=== PATIENT | male | born 1975 | race Caucasian/White ===

== ENCOUNTER 2017-01-05 15:30 | Emergency (ER) | payer OTHER ==
[~2017-01-05] VITALS: Ht 175.2 cm; Wt 77.1 kg
[~2017-01-05 15:30] MED LIST: ATARAX,VISTARIL50 MG PO; CLONAZEPAM1 MG PO; Cleocin150 MG PO; NICOTINE T21 MG/24 H T; ONDANSETRON HYDR4 M1 PO; REGLAN10 MG PO; ROBAXIN750 MG PO; SINEMET 25-100M1 TAB PO; THERA1 TAB PO; VITAMIN B-11 TAB PO; ZOFRAN ODT4 MG SL
[2017-01-05] MEDS ORDERED: ADDERALL 20 MG20 MG PO (15:41)
[2017-01-05] MEDS ORDERED: CLONAZEPAM1 MG PO (15:42)
[2017-01-05] MEDS ORDERED: MIRTAZAPINE30 M2 PO (15:42)
[2017-01-05] MEDS ORDERED: PREDNISONE20 M1 PO (15:47)
== END 2017-01-05 15:50 | disposition home or self-care (01) ==
LOC: ED 15:30
DX: L24.7 Irritant contact dermatitis due to plants, except food (principal); F17.200 Nicotine dependence, unspecified, uncomplicated

== ENCOUNTER 2017-03-26 14:11 | Emergency (ER) | payer OTHER ==
[~2017-03-26] VITALS: Ht 175.2 cm; Wt 74.8 kg
[~2017-03-26 14:11] MED LIST changes: +ADDERALL 20 MG20 MG PO; +MIRTAZAPINE30 M2 PO; +PREDNISONE20 M1 PO
== END 2017-03-26 14:54 | disposition home or self-care (01) ==
LOC: ED 14:11
DX: L23.7 Allergic contact dermatitis due to plants, except food (principal); F17.200 Nicotine dependence, unspecified, uncomplicated

== ENCOUNTER 2017-08-19 21:45 | Emergency (ER) | payer OTHER ==
[~2017-08-19] VITALS: Ht 175.2 cm; Wt 74.8 kg
[2017-08-19 23:46] LABS: BILIRUBIN NEGATIVE (NEGATIVE); BLOOD NEGATIVE (NEGATIVE); CLARITY SL CLOUDY (CLEAR); COLOR YELLOW (YELLOW); GLUCOSE NEGATIVE (NEGATIVE); KETONE NEGATIVE (NEGATIVE); LEUKO ESTERASE NEGATIVE (NEGATIVE); NITRITE NEGATIVE (NEGATIVE); SPECIFIC GRAVITY 1.025 (1.005-1.030); UROBILINOGEN 0.2 E.U./dl (0.2-1.0)
[2017-08-19 23:53] LABS: URINE AMPHETAMINES > 1000 (1000ng/ml); URINE BARBITURATES > 200 (200ng/ml); URINE BENZODIAZEPINES > 200 (200ng/ml); URINE CANNABINOIDS (THC) > 50 (50ng/ml); URINE COCAINE > 300 (300ng/ml); URINE METHADONE < 300 (300ng/ml); URINE OPIATES < 300 (300ng/ml)
[2017-08-19 23:57] LABS: URINE PHENCYCLIDINE < 25 (25ng/ml)
[2017-08-20 00:04] LABS: BACTERIA TRACE
== END 2017-08-20 01:16 | disposition home or self-care (01) ==
LOC: ED 21:45
PROVIDERS: Nurse Practitioner Family
DX: S09.90XA Unspecified injury of head, initial encounter (principal); F41.9 Anxiety disorder, unspecified; F14.10 Cocaine abuse, uncomplicated; F17.200 Nicotine dependence, unspecified, uncomplicated; Z79.899 Other long term (current) drug therapy; V89.2XXA Person injured in unspecified motor-vehicle accident, traffic, initial encounter; Y93.89 Activity, other specified; Y92.89 Other specified places as the place of occurrence of the external cause; Y99.8 Other external cause status

== ENCOUNTER → 2018-04-23 | Outpatient (CLI) | payer OTHER ==
[~2018-04-23] MED LIST changes: +CHLORZOXAZONE500 M2 PO; +MIRAPEX0.5 MG PO; +PREDNISONE10 MG PO; +TRAZODONE50 MG PO
[2018-04-23 13:42] LABS: HEMATOCRIT 45.2 % (42.0-52.0); HEMOGLOBIN 15.3 g/dl (14.0-18.0); MEAN CELL VOLUME 91.9 fl (80.0-94.0); MEAN CORPUSCULAR HGB 31.1 pg (27.0-31.0); MEAN CORPUSCULAR HGB CONC 33.8 g/dl (33.0-37.0); MEAN PLATELET VOLUME 8.6 fl (9.6-12.3); RED BLOOD COUNT 4.92 10*6/uL (4.50-5.90); RED CELL DISTRI WIDTH 13.7 % (0-14.5); WHITE BLOOD COUNT 12.1 10*3/uL (4.8-10.8)
[2018-04-23 14:14] LABS: ALBUMIN 4.3 gm/dl (3.1-4.5); BUN 10 mg/dl (7-24); CHLORIDE 106 mmol/L (98-107); CHOLESTEROL 147 mg/dL (<200); CREATININE 0.72 mg/dL (0.70-1.30); POTASSIUM 3.9 mmol/L (3.5-5.1); SGOT/AST 55 IU/L (3-35); SGPT/ALT 138 U/L (12-78); SODIUM 138 mmol/L (136-145); TOTAL PROTEIN 8.1 gm/dL (6.4-8.2); TRIGLYCERIDES 100 mg/dl (<150); VLDL CHOLESTEROL 20 mg/dL (6-40)
[2018-04-23 14:22] LABS: ALKALINE PHOSPHATASE 69 U/L (45-117); HDL CHOLESTEROL 37 mg/dl (40-60); LDL CHOLESTEROL 90 mg/dL (9-159)
== END | disposition home or self-care (01) ==
LOC: LAB 13:07
PROVIDERS: Family Medicine
DX: E78.00 Pure hypercholesterolemia, unspecified (principal); M54.2 Cervicalgia; E55.9 Vitamin D deficiency, unspecified; R53.83 Other fatigue; G47.00 Insomnia, unspecified

== ENCOUNTER → 2018-05-27 | Outpatient (CLI) | payer OTHER | END | disposition home or self-care (01) | LOC: US 05-26 10:30 | DX: R94.5 Abnormal results of liver function studies (principal); Z90.49 Acquired absence of other specified parts of digestive tract ==

== ENCOUNTER 2019-02-25 13:12 | Inpatient (IN) | payer OTHER ==
[~2019-02-25] VITALS: Ht 172.7 cm; Wt 69.2 kg
--- NOTE | ~2019-02-25 | EKG ---
[place], [place] ELECTROCARDIOGRAM REPORT NAME: LIZBET PAULINO UNIT #: [id number] ROOM: 427 DOCTOR: JAYY DRAFT REPORT BIRTHDATE: [birth year] [facility] Test Date: 2019-02-25 Test Time: 15:45:56 Pat Name: LIZBET PAULINO Department: Room: 427 1 Gender: M Die Cast Operator: : 1975 Requested By: PRADEEP RANGEL Order Number: [id number] Reading MD: Nikki Reagan Measurements Intervals [place] Rate: 77 P: 52 SC: 142 QRS: -10 QRSD: 101 T: 41 QT: 390 QTc: 442 Interpretive Statements Sinus rhythm Atrial premature complexes Abnormal R-wave progression, early transition Compared to ECG 06/25/2018 16:06:05 Atrial premature complex(es) now present Electronically Signed On 02-27-2019 8:55:49 PDT by Nikki Reagan CM:EKGRPT:ELECTROCARDIOGRAM REPORT [id number] PRADEEP SALEEM DRAFT REPORT PRADEEP RANGEL DO
[2019-02-25] MEDS ORDERED: EFFEXOR XR150 M1 PO (15:19)
[2019-02-25 16:00] VITALS: BP 123/85
[2019-02-25] MEDS ORDERED: ADDERALL 10 MG10 MG PO (16:59)
[2019-02-25 20:00] VITALS: BP 135/85
[2019-02-26] VITALS: BP 124/81
[2019-02-26 08:00] VITALS: BP 92/63
[2019-02-26 10:44] LABS: HEMOGLOBIN 15.1 g/dl (14.0-18.0); MEAN CELL VOLUME 91.6 fl (80.0-94.0); MEAN CORPUSCULAR HGB 30.1 pg (27.0-31.0); MEAN CORPUSCULAR HGB CONC 32.8 g/dl (33.0-37.0); MEAN PLATELET VOLUME 8.9 fl (9.6-12.3); PLATELET COUNT AUTOMATED 334 10*3/uL (130-400); RED BLOOD COUNT 5.02 10*6/uL (4.50-5.90); RED CELL DISTRI WIDTH 13.1 % (0-14.5); WHITE BLOOD COUNT 10.4 10*3/uL (4.8-10.8)
[2019-02-26 10:51] LABS: URINE AMPHETAMINES < 1000 (1000ng/ml); URINE BARBITURATES < 200 (200ng/ml); URINE BENZODIAZEPINES > 200 (200ng/ml); URINE CANNABINOIDS (THC) > 50 (50ng/ml); URINE COCAINE < 300 (300ng/ml); URINE METHADONE < 300 (300ng/ml); URINE OPIATES < 300 (300ng/ml); URINE PHENCYCLIDINE < 25 (25ng/ml)
[2019-02-26 11:03] LABS: ALBUMIN 4.1 gm/dl (3.1-4.5); ALKALINE PHOSPHATASE 74 U/L (45-117); BUN 11 mg/dl (7-24); CHLORIDE 107 mmol/L (98-107); CREATININE 0.75 mg/dL (0.70-1.30); POTASSIUM 4.5 mmol/L (3.5-5.1); SGOT/AST 54 IU/L (3-35); SGPT/ALT 121 U/L (12-78); SODIUM 141 mmol/L (136-145); TOTAL PROTEIN 7.7 gm/dL (6.4-8.2)
[2019-02-26 11:06] LABS: ATYPICAL LYMPHS 1 % (0-0); BASOPHILS 1 % (0-1); PLATELET SUFFICIENCY NORMAL (NORMAL); TOTAL CELLS COUNTED 100 #CELLS
[2019-02-26 11:07] LABS: ETHYL ALCOHOL < 3.0 mg/dl (<3)
[2019-02-26 16:00] VITALS: BP 114/75
[2019-02-27] VITALS: BP 121/77
[2019-02-27 08:00] VITALS: BP 108/69
[2019-02-27 16:00] VITALS: BP 106/66
[2019-02-28] VITALS: BP 118/68
[2019-02-28 08:00] VITALS: BP 113/77
[2019-02-28] MEDS ORDERED: PREDNISONE20 M1 PO (09:29)
[2019-02-28] MEDS ORDERED: METHOCARBAMOL750 M1 PO (09:29)
[2019-02-28] MEDS ORDERED: MOTRIN 600 MG E4 TAB PO (09:29)
[2019-02-28] MEDS ORDERED: NICOTROL10 MG INH (11:15)
== END 2019-02-28 12:12 | disposition home or self-care (01) | DRG 897 ==
LOC: 4E 13:12
PROVIDERS: Internal Medicine; Student in an Organized Health Care Education/Training Program; ADMIT Emergency Medicine
DX: F11.23 Opioid dependence with withdrawal (principal); F33.9 Major depressive disorder, recurrent, unspecified; F13.239 Sedative, hypnotic or anxiolytic dependence with withdrawal, unspecified; Z66 Do not resuscitate; Z51.5 Encounter for palliative care; F17.210 Nicotine dependence, cigarettes, uncomplicated; F90.9 Attention-deficit hyperactivity disorder, unspecified type; F15.10 Other stimulant abuse, uncomplicated; F41.1 Generalized anxiety disorder; R74.0 Nonspecific elevation of levels of transaminase and lactic acid dehydrogenase [LDH]; R73.9 Hyperglycemia, unspecified; Z87.820 Personal history of traumatic brain injury; Z90.49 Acquired absence of other specified parts of digestive tract; Z82.0 Family history of epilepsy and other diseases of the nervous system; Z79.899 Other long term (current) drug therapy; Z71.6 Tobacco abuse counseling

== ENCOUNTER 2019-07-14 14:43 | Inpatient (IN) | payer OTHER ==
[~2019-07-14] VITALS: Ht 175.2 cm; Wt 69.5 kg
[~2019-07-14 14:43] MED LIST changes: +ADDERALL 10 MG10 MG PO; +EFFEXOR XR150 M1 PO; +METHOCARBAMOL750 M1 PO; +MOTRIN 600 MG E4 TAB PO; +NICOTROL10 MG INH
--- NOTE | 2019-07-14 16:21 | NUR ---
PATIENT MEETS [facility]. CINA=18. PATIENT WANTS TO FOLLOW UP WITH [facility] MEETINGS FOR HIS AFTERCARE PLAN. JAYME JOYCE B.A. GUEST SPECIALIST
[2019-07-14 17:04] LABS: BASO % 0.2 % (0.0-1.0); EOS # 0.1 10*3/uL (0.0-0.4); EOS % 0.6 % (1.0-4.0); HEMOGLOBIN 16.1 g/dl (14.0-18.0); LYMPH % 24.3 % (27.0-41.0); MEAN CELL VOLUME 92.1 fl (80.0-94.0); MEAN CORPUSCULAR HGB 30.3 pg (27.0-31.0); MEAN CORPUSCULAR HGB CONC 32.9 g/dl (33.0-37.0); MEAN PLATELET VOLUME 9.4 fl (9.6-12.3); MONO # 0.9 10*3/uL (0.1-1.0); MONO % 7.3 % (3.0-9.0); NEUT # 8.2 10*3/uL (2.3-7.9); NEUT % 67.3 % (47.0-73.0); PLATELET COUNT AUTOMATED 310 10*3/uL (130-400); RED BLOOD COUNT 5.32 10*6/uL (4.50-5.90); RED CELL DISTRI WIDTH 12.7 % (0-14.5); WHITE BLOOD COUNT 12.1 10*3/uL (4.8-10.8)
--- NOTE | 2019-07-14 17:04 | NUR ---
Medicated with robaxin, bentyl, immodium and zofran for c/o muscles aches, abdominal cramping, diarrhea and nausea.
[2019-07-14 17:08] VITALS: BP 123/82
[2019-07-14] MEDS ORDERED: CORTISONE60 GM T (17:08)
[2019-07-14 17:30] LABS: ALBUMIN 4.2 gm/dl (3.1-4.5); ALKALINE PHOSPHATASE 80 U/L (45-117); BUN 9 mg/dl (7-24); CHLORIDE 110 mmol/L (98-107); CREATININE 0.75 mg/dL (0.70-1.30); SGOT/AST 81 IU/L (3-35); SGPT/ALT 143 U/L (12-78); SODIUM 140 mmol/L (136-145); TOTAL PROTEIN 8.4 gm/dL (6.4-8.2)
[2019-07-14 17:48] LABS: ETHYL ALCOHOL < 3.0 mg/dl (<3)
[2019-07-14] MEDS ORDERED: BUPRENORPHINE HY8 MG PO (18:02)
--- NOTE | 2019-07-14 18:35 | NUR ---
Pt given nicotrol inhaler and instructed on use.
[2019-07-14 20:00] VITALS: BP 102/66
--- NOTE | 2019-07-14 20:00 | NUR ---
PATIENT REQUESTING PAIN MEDICATION FOR HEADACHE. MOTRIN ADMINISTERED PRESCRIBED. WILL MONITOR FOR EFFECTIVENESS.
[2019-07-14 20:32] LABS: BILIRUBIN 1+ (NEGATIVE); BLOOD NEGATIVE (NEGATIVE); CLARITY CLEAR (CLEAR); COLOR YELLOW (YELLOW); GLUCOSE NEGATIVE (NEGATIVE); KETONE 2+ (NEGATIVE); LEUKO ESTERASE NEGATIVE (NEGATIVE); NITRITE NEGATIVE (NEGATIVE); SPECIFIC GRAVITY 1.025 (1.005-1.030)
[2019-07-14 20:36] LABS: URINE AMPHETAMINES < 1000 (1000ng/ml); URINE BARBITURATES < 200 (200ng/ml); URINE BENZODIAZEPINES > 200 (200ng/ml); URINE CANNABINOIDS (THC) > 50 (50ng/ml); URINE COCAINE < 300 (300ng/ml); URINE METHADONE < 300 (300ng/ml); URINE OPIATES < 300 (300ng/ml)
[2019-07-14 20:42] LABS: EPITHELIAL CELLS 0-2; MUCOUS 2+
[2019-07-14 20:43] LABS: URINE PHENCYCLIDINE < 25 (25ng/ml)
--- NOTE | 2019-07-14 21:00 | NUR ---
PATIENT STATES THAT MORTIN WAS EFFECTIVE FOR HEADACHE. WILL MONITOR.
--- NOTE | 2019-07-14 22:35 | NUR ---
PATIENT REQUESTING MEDICATION FOR ANXIETY, RESTLESSNESS, NAUSEA, AND SLEEP. VISTARIL, REQUIP, ZOFRAN, AND TRAZADONE ADMINISTERED PRESCRIBED. WILL MONITOR FOR EFFECTIVENESS.
[2019-07-15] VITALS: BP 96/54
--- NOTE | 2019-07-15 | NUR ---
PATIENT RESTING WITH EYES CLOSED. RESPIRATIONS EASY AND UNLABORED. CALL LIGHT WITHIN REACH. WILL MONITOR.
--- NOTE | 2019-07-15 02:00 | NUR ---
PATIENT RESTING WITH EYES CLOSED. RESPIRATIONS EASY AND UNLABORED. CALL LIGHT WITHIN REACH. WILL MONITOR.
[2019-07-15 08:00] VITALS: BP 101/71
[2019-07-15 12:00] VITALS: BP 104/69
--- NOTE | 2019-07-15 13:40 | NUR ---
Bentyl given for patient c/o stomach discomfort, Requip given for c/o wrestless legs and Robaxin given for c/o muscle spasms. Will monitor.
--- NOTE | 2019-07-15 14:30 | NUR ---
PRN Bentyl, Requip, and Robaxin effective. Patient has no c/o upset stomach and no discomfort in bilateral legs. Patient satisfied.
--- NOTE | 2019-07-15 14:43 | NUR ---
PATIENT IS GOING TO FOLLOW UP WITH [facility] MEETINGS. [facility] STAFF PROVIDED PATIENT WITH A LIST IN HIS LOCAL AREA. PATIENT AGREES AND UNDERSTANDS HIS AFTERCARE PLAN. JAYME JOYCE B.A. PSYCHOLOGIST CHIEF
[2019-07-15 16:00] VITALS: BP 106/63
--- NOTE | 2019-07-15 17:30 | NUR ---
Zofran given for patient c/o nausea/upset stomach and Vistaril given for c/o anxiety. Will monitor
--- NOTE | 2019-07-15 19:59 | NUR ---
24 HR chart check completed.
[2019-07-15 20:00] VITALS: BP 104/60
--- NOTE | 2019-07-15 21:00 | NUR ---
RESTING IN BED WATCHING TV. RESPIRATIONS EASY. LUNGS DIMINISHED, CLEAR. PULSE OX 98% RA. CALL LIGHT WITHIN REACH. NO VOICED COMPLAINTS
--- NOTE | 2019-07-15 22:25 | NUR ---
Patient displaying withdrawal symptoms, including: irritability, anxiousness, restlessness and agitation. Scheduled/PRN medications provided, SEE EMAR. Will continue to monitor medication effectiveness.
[2019-07-16] VITALS: BP 99/60
--- NOTE | 2019-07-16 | NUR ---
Patient resting. Responding to scheduled medications with fewer complaints of pain and anxiety.
--- NOTE | 2019-07-16 01:20 | NUR ---
ROUTINE MEDS PROVIDED TO ASSIST WITH WITHDRAWAL
--- NOTE | 2019-07-16 06:10 | NUR ---
Patient displaying withdrawal symptoms, including: irritability, anxiousness, restlessness and agitation, complicated by impulsive behavior. Scheduled/PRN medications provided, SEE EMAR. Will continue to monitor medication effectiveness.
[2019-07-16 08:00] VITALS: BP 98/60
[2019-07-16 12:00] VITALS: BP 118/94
[2019-07-16 16:00] VITALS: BP 107/65
[2019-07-16 20:00] VITALS: BP 110/71
--- NOTE | 2019-07-16 21:13 | NUR ---
PATIENT REQUESTING PAIN MEDICATION FOR ABDOMINAL DISCOMFORT, CONSTIPATION, HEADACHE, RESTLESSNESS, MUSCLE ACHES, AND SLEEP. BENTYL, SENOKOT, MOTRIN, REQUIP, ROBAXIN, AND TRAZODONE ADMINISTERED PRESCRIBED. WILL MONITOR FOR EFFECTIVENESS.
--- NOTE | 2019-07-16 22:13 | NUR ---
PATIENT RESTING WITH EYES CLOSED AT THIS TIME. CALL LIGHT WITHIN REACH. WILL MONITOR.
[2019-07-17] VITALS: BP 119/65
--- NOTE | 2019-07-17 | NUR ---
PATIENT RESTING WITH EYES CLOSED. RESPIRATIONS EASY AND UNLABORED ON BIPAP. BED ALARM ON AND CALL LIGHT WITHIN REACH. WILL MONITOR.
--- NOTE | 2019-07-17 02:00 | NUR ---
PATIENT RESTING WITH EYES CLOSED. RESPIRATIONS EASY AND UNLABORED ON BIPAP. BED ALARM ON AND CALL LIGHT WITHIN REACH. WILL MONITOR.
--- NOTE | 2019-07-17 04:00 | NUR ---
PATIENT RESTING IN BED WITH EYES CLOSED. RESPIRATIONS EASY AND UNLABORED ON 6LNC. BED ALARM ON AND CALL LIGHT WITHIN REACH. WILL MONITOR.
[2019-07-17 06:46] LABS: BASO % 0.3 % (0.0-1.0); EOS # 0.3 10*3/uL (0.0-0.4); EOS % 4.6 % (1.0-4.0); HEMATOCRIT 47.3 % (42.0-52.0); HEMOGLOBIN 15.3 g/dl (14.0-18.0); LYMPH # 3.4 10*3/uL (1.3-4.4); LYMPH % 52.4 % (27.0-41.0); MEAN CORPUSCULAR HGB 29.8 pg (27.0-31.0); MEAN CORPUSCULAR HGB CONC 32.3 g/dl (33.0-37.0); MEAN PLATELET VOLUME 9.5 fl (9.6-12.3); MONO # 0.9 10*3/uL (0.1-1.0); MONO % 13.3 % (3.0-9.0); NEUT # 1.9 10*3/uL (2.3-7.9); NEUT % 29.2 % (47.0-73.0); PLATELET COUNT AUTOMATED 300 10*3/uL (130-400); RED BLOOD COUNT 5.14 10*6/uL (4.50-5.90); RED CELL DISTRI WIDTH 12.5 % (0-14.5); WHITE BLOOD COUNT 6.6 10*3/uL (4.8-10.8)
[2019-07-17 06:51] LABS: CREATININE 0.75 mg/dL (0.70-1.30)
[2019-07-17 08:00] VITALS: BP 113/77
[2019-07-17] MEDS ORDERED: DICYCLOMINE HCL20 MG PO (08:36)
[2019-07-17] MEDS ORDERED: MEDROL DOSEPAK4 MG PO (08:41)
[2019-07-17] MEDS ORDERED: ZOFRAN4 MG PO (08:41)
--- NOTE | 2019-07-17 10:10 | NUR ---
Discharge instructions reviewed with patient/family. Patient receptive and verbalizes understanding. Follow-up care arranged. Written instructions given to patient/family. Patient was educated on new prescriptions and to follow up with oupatient therapy per [facility] protocol. PHILOMENA HO
== END 2019-07-17 11:00 | disposition home or self-care (01) | DRG 897 ==
LOC: 5E 14:43
PROVIDERS: ADMIT Internal Medicine
DX: F11.23 Opioid dependence with withdrawal (principal); F33.9 Major depressive disorder, recurrent, unspecified; L30.9 Dermatitis, unspecified; D72.829 Elevated white blood cell count, unspecified; F41.1 Generalized anxiety disorder; F17.210 Nicotine dependence, cigarettes, uncomplicated; R25.2 Cramp and spasm; R74.0 Nonspecific elevation of levels of transaminase and lactic acid dehydrogenase [LDH]; R00.1 Bradycardia, unspecified; I95.9 Hypotension, unspecified; E87.8 Other disorders of electrolyte and fluid balance, not elsewhere classified; G89.29 Other chronic pain; F90.9 Attention-deficit hyperactivity disorder, unspecified type; Z87.820 Personal history of traumatic brain injury; Z90.49 Acquired absence of other specified parts of digestive tract; Z82.0 Family history of epilepsy and other diseases of the nervous system; Z79.899 Other long term (current) drug therapy

== ENCOUNTER 2019-07-27 16:59 | Emergency (ER) | payer OTHER ==
[~2019-07-27] VITALS: Ht 175.2 cm; Wt 65.8 kg
[~2019-07-27 16:59] MED LIST changes: +BUPRENORPHINE HY8 MG PO; +CORTISONE60 GM T; +DICYCLOMINE HCL20 MG PO; +MEDROL DOSEPAK4 MG PO; +ZOFRAN4 MG PO
[2019-07-27 18:05] LABS: BILIRUBIN NEGATIVE (NEGATIVE); BLOOD NEGATIVE (NEGATIVE); CLARITY CLEAR (CLEAR); COLOR YELLOW (YELLOW); GLUCOSE NEGATIVE (NEGATIVE); KETONE 1+ (NEGATIVE); LEUKO ESTERASE NEGATIVE (NEGATIVE); NITRITE NEGATIVE (NEGATIVE); SPECIFIC GRAVITY 1.025 (1.005-1.030)
[2019-07-27 18:17] LABS: BASO # 0.1 10*3/uL (0.0-0.1); BASO % 0.4 % (0.0-1.0); EOS # 0.2 10*3/uL (0.0-0.4); EOS % 1.5 % (1.0-4.0); HEMOGLOBIN 15.4 g/dl (14.0-18.0); LYMPH # 4.1 10*3/uL (1.3-4.4); LYMPH % 34.9 % (27.0-41.0); MEAN CELL VOLUME 90.6 fl (80.0-94.0); MEAN CORPUSCULAR HGB 30.3 pg (27.0-31.0); MEAN CORPUSCULAR HGB CONC 33.5 g/dl (33.0-37.0); MONO # 1.3 10*3/uL (0.1-1.0); MONO % 11.3 % (3.0-9.0); NEUT % 51.8 % (47.0-73.0); PLATELET COUNT AUTOMATED 305 10*3/uL (130-400); RED BLOOD COUNT 5.08 10*6/uL (4.50-5.90); RED CELL DISTRI WIDTH 12.3 % (0-14.5); WHITE BLOOD COUNT 11.7 10*3/uL (4.8-10.8)
[2019-07-27 18:18] LABS: URINE AMPHETAMINES > 1000 (1000ng/ml); URINE BARBITURATES < 200 (200ng/ml); URINE BENZODIAZEPINES < 200 (200ng/ml); URINE CANNABINOIDS (THC) > 50 (50ng/ml); URINE COCAINE < 300 (300ng/ml); URINE METHADONE < 300 (300ng/ml); URINE OPIATES < 300 (300ng/ml)
[2019-07-27 18:23] LABS: URINE PHENCYCLIDINE < 25 (25ng/ml)
[2019-07-27 18:36] LABS: ALBUMIN 4.5 gm/dl (3.1-4.5); ALKALINE PHOSPHATASE 69 U/L (45-117); BUN 14 mg/dl (7-24); CHLORIDE 109 mmol/L (98-107); CREATININE 0.89 mg/dL (0.70-1.30); POTASSIUM 3.7 mmol/L (3.5-5.1); SGOT/AST 63 IU/L (3-35); SGPT/ALT 92 U/L (12-78); SODIUM 137 mmol/L (136-145); TOTAL PROTEIN 8.4 gm/dL (6.4-8.2)
[2019-07-27 18:37] LABS: ACETAMINOPHEN (TYLENOL) < 5.0 ug/ml (10-30); ETHYL ALCOHOL < 3.0 mg/dl (<3)
== END 2019-07-27 22:13 | disposition home or self-care (01) ==
LOC: ED 16:59
PROVIDERS: Nurse Practitioner Family
DX: K59.00 Constipation, unspecified (principal); F15.129 Other stimulant abuse with intoxication, unspecified; R41.0 Disorientation, unspecified; M54.5 Low back pain; F32.9 Major depressive disorder, single episode, unspecified; G40.909 Epilepsy, unspecified, not intractable, without status epilepticus; F17.200 Nicotine dependence, unspecified, uncomplicated; Z79.899 Other long term (current) drug therapy; Z90.49 Acquired absence of other specified parts of digestive tract